=== PATIENT | male | born 1960 | race Caucasian/White ===

== ENCOUNTER 2018-09-11 08:29 | Day surgery (SDC) | payer OTHER ==
[~2018-09-11 08:29] MED LIST: CEFAZOLIN 2 GM/50 ML (PMX) 50 ML IVPB; SOD CHLORIDE 0.9% 1,000 ML IV
[2018-09-11] MEDS ORDERED: ETOMIDATE 20 MG INJ (11:28)
[2018-09-11] MEDS ORDERED: LIDOCAINE 1% (MDV) 20 ML INJ (11:28)
[2018-09-11] MEDS ORDERED: PROPOFOL 20 ML (11:28)
[2018-09-11] MEDS ORDERED: FENTAnyl 50 MCG/ML VIAL (11:35)
[2018-09-11] MEDS ORDERED: ROPIVACAINE 0.5 % 30 ML VIAL (11:36)
[2018-09-11] MEDS ORDERED: CEFAZOLIN 1 GM INJ (11:47)
[2018-09-11] MEDS: POLYMYXIN/BACITRACIN 1L IRRIG (11:53)
[2018-09-11] MEDS ORDERED: ONDANSETRON 4 MG INJ (12:16)
[2018-09-11] MEDS ORDERED: KETOROLAC 30 MG INJ (12:25)
[2018-09-11] MEDS ORDERED: HYDROCODONE/APAP (5/325) TAB PO (12:30)
[2018-09-11] MEDS ORDERED: MEPERIDINE 25 MG INJ (12:34)
[2018-09-11] MEDS: MEPERIDINE 25 MG INJ IV (14:38)
== END 2018-09-11 16:04 | disposition home or self-care (01) ==
LOC: SDS 08:29
DX: K40.30 Unilateral inguinal hernia, with obstruction, without gangrene, not specified as recurrent (principal)
CPT/HCPCS: 49507